=== PATIENT | male | born 1960 | race Caucasian/White ===

== ENCOUNTER 2024-05-15 08:29 | Outpatient (CLI) | payer MEDICARE | END 2024-05-15 08:30 | disposition home or self-care (01) | LOC: SCSRAD 08:29 | PROVIDERS: ATTEND Family Medicine | DX: M54.41 Lumbago with sciatica, right side (principal); M25.551 Pain in right hip; M47.816 Spondylosis without myelopathy or radiculopathy, lumbar region | CPT/HCPCS: 72100 ==